=== PATIENT | female | born 1995 | race Caucasian/White ===

== ENCOUNTER 2016-10-19 21:38 | Emergency (ER) | payer OTHER ==
[2016-10-19 22:09] VITALS: BP 124/83; PULSE 90; RESP 18; TEMP 98.7
[2016-10-19] MEDS ORDERED: BUTALB/APAP/CAFF 50-325-40MG TAB PO STA (22:31)
--- NOTE | 2016-10-19 22:34 | ED ---
General Adult HPI - General Chief complaint: Headache Stated complaint: Head pain behind ear Time Seen by Provider: 10/19/16 22:15 Source: patient, family, RN notes reviewed, old records reviewed Mode of arrival: ambulatory Limitations: no limitations - History of Present Illness Initial comments: Chief complaint and history of present illness is a 20-year-old female who is admittedly anxious and has chronic headaches. For the last several days to have discomfort behind the right ear. She does report that for the last year she is also has had some twitching. And occasionally loses her balance. This been ongoing for 4 years. No head injuries. - Related Data Home Medications Medication Instructions Recorded Confirmed No Known Home Medications [No 05/27/16 05/27/16 Known Home Medications] Allergies Allergy/AdvReac Type Severity Reaction Status Date / Time acetaminophen [From Vicodin] Allergy Nausea Verified 05/27/16 23:31 hydrocodone bitartrate Allergy Nausea Verified 05/27/16 23:31 [From Vicodin] Review of Systems ROS Statement: Those systems with pertinent positive or pertinent negative responses have been documented in the HPI. Review of systems. Currently no nausea no vomiting mild headache to the area behind the right ear. She does have a past history of migraines. No stiff neck no shortness of breath no GI/ problems. On gather information patient reports she states occasionally dizzy with vertigo. And occasionally stumbles and falls once or twice per year. Claims he is clumsy. All systems reviewed past medical problems she has history of anemia and anxiety. She's had surgery on the right year 4 overabundance of bone she describes it. No scars noted behind the year. Tympanic membrane otherwise appears to be normal at this time. No other medical problems. Family history noncontributory ALLERGIES to hydrocodone. Patient does smoke encouraged to stop. ROS Other: All systems not noted in ROS Statement are negative. Past Medical History Additional Past Medical History / Comment(s): anemia, anxiety History of Any Multi-Drug Resistant Organisms: None Reported Past Surgical History: Ear Surgery, Orthopedic Surgery Past Psychological History: Anxiety Smoking Status: Current every day smoker Past Alcohol Use History: None Reported Past Drug Use History: None Reported General Exam - General Exam Comments Initial Comments: General: The patient is awake and alert, in no distress, and does not appear acutely ill. Complains discomfort behind her right ear. Radiation. No rashes no injuries. No nausea no vomiting. The patient's temperature is 98.7 pulse 90 respiratory rate 18 pulse ox 90% room air blood pressure 124/83 Eye: Pupils are equal, round and reactive to light, extra-ocular movements are intact ; there is normal conjunctiva bilaterally. No signs of icterus. Ears, nose, mouth and throat: There are moist mucous membranes and no oral lesions. Neck: The neck is supple, there is no tenderness , no anterior cervical lymphadenopathy. Cardiovascular: There is a regular rate and rhythm. No murmur, rub or gallop is appreciated. Respiratory: Lungs are clear to auscultation, respirations are non-labored, breath sounds are equal. No wheezes, stridor, rales, or rhonchi. Gastrointestinal: Soft, non-distended, non-tender abdomen without masses or organomegaly noted. There is no rebound or guarding present. No CVA tenderness. Bowel sounds are unremarkable. Back: There is no tenderness to palpation in the midline. There is no obvious deformity. No rashes noted. Musculoskeletal: Normal ROM, no tenderness, There is no pedal edema. There is no calf tenderness or swelling. Sensation intact. Pulses equal bilaterally 2+. Neurological: CN II-XII intact, There are no obvious motor or sensory deficits. Coordination appears grossly intact. Speech is normal. No focal or lateralizing findings. Skin: Skin is warm and dry and no rashes or lesions are noted. Psychiatric: States she is a past history of anxiety. Limitations: no limitations Course Vital Signs 10/19/16 22:07 Temperature 98.7 F Pulse Rate 90 Respiratory 18 Rate Blood Pressure 124/83 O2 Sat by Pulse 98 Oximetry Medical Decision Making - Medical Decision Making The patient declined Fioricet. She states that her headache had subsided significantly and was not that bad. CAT scan of the brain was done and reviewed his entirety. Findings include no acute intracranial hemorrhage. No evidence of acute infarct. No significant white matter disease. No edema. No mass effect or midline shift. Ventricles unremarkable ventricular megaly. Bones and joints unremarkable no acute fracture. Soft tissues no significant soft tissue abnormality. Sinuses small mucus retention cyst in the left maxillary sinus, incompletely visualized. Remainder of the visualized paranasal sinuses are clear. Mastoid air cells. Mastoid air cells are clear. No mastoid effusion. Impression no evidence of acute intracranial abnormality. No acute findings to account for symptoms. As read by Dr. Durant The patient be discharged home. Advised to use Tylenol or ibuprofen for her headaches. Advised to follow-up with family physician for further evaluation and management as needed. Disposition Clinical Impression: Tension headache Disposition: HOME SELF-CARE Condition: Fair Instructions: Tension Headache (ED) Additional Instructions: Change positions slowly. Use Tylenol or ibuprofen for headaches. Follow-up with family physician for further evaluation of twitching in balance problems. Referrals: Rhonda Ceron DO [Primary Care Provider] - 1-2 days Time of Disposition: 23:18
--- NOTE | 2016-10-19 23:06 | CT ---
EXAM: CT Head Without Intravenous Contrast CLINICAL HISTORY: Pain behind right ear, poor balance. TECHNIQUE: Axial computed tomography images of the head/brain without intravenous contrast. Coronal and sagittal reformations provided. DOSE INFORMATION: CTDI is 60.30 mGy and DLP is 1011.20 mGy-cm. This CT exam was performed using one or more of the following dose reduction techniques: automated exposure control, adjustment of the mA and/or kV according to patient size, and/or use of iterative reconstruction technique. COMPARISON: No relevant prior studies available. FINDINGS: Brain: No acute intracranial hemorrhage. No evidence of acute infarct. No significant white matter disease. No edema. No mass effect or midline shift. Ventricles: Unremarkable. No ventriculomegaly. Bones/joints: Unremarkable. No acute fracture. Soft tissues: No significant soft tissue abnormality. Sinuses: Small mucous retention cyst in the left maxillary sinus, incompletely visualized. Remainder of visualized paranasal sinuses are clear. Mastoid air cells: Mastoid air cells are clear. No mastoid effusion. IMPRESSION: No evidence of acute intracranial abnormality. No acute findings to account for symptoms.
== END 2016-10-19 23:37 | disposition home or self-care (01) ==
LOC: EC 21:38
DX: G44.209 Tension-type headache, unspecified, not intractable (principal); F17.200 Nicotine dependence, unspecified, uncomplicated; Z88.5 Allergy status to narcotic agent
CPT/HCPCS: 70450; 99284

== ENCOUNTER 2017-07-08 15:47 | Emergency (ER) | payer OTHER ==
[2017-07-08 15:59] VITALS: BP 130/76; PULSE 85; RESP 18; TEMP 97.9
--- NOTE | 2017-07-08 17:09 | ED ---
Chest Pain HPI - General Chief Complaint: Chest Pain Stated Complaint: Chest Pain Time Seen by Provider: 07/08/17 16:41 Source: patient Mode of arrival: ambulatory Limitations: no limitations - History of Present Illness Initial Comments: This 20-year-old white female presents with a complaint of some chest pain. She states that it is on her left side and into her left shoulder. It is a sharp type of pain that just lasts a couple of seconds. It is intermittent in nature. It is been present for approximately 2 weeks. She also has had some intermittent palpitations for the past month or more. She did a Holter monitor which she stopped 2 weeks ago. This did not show any abnormalities per patient. He denies any leg pain or swelling or history of DVT or PE. She denies any known previous Cardiologic problems. She denies any cough, fever, or chills. She states that she will feel shortness of breath at times if she exerts herself but states that she does smoke. She complains of significant anxiety. She apparently has a history of anxiety and was prescribed medications. She states that she gets anxious about taking her anxiety medications so does not take anything for her anxiety. She does complain of continued palpitations as well. She does complain of occasional paresthesias into her upper extremities. She denies any other complaints or modifying factors. She is refusing any antianxiety medication currently. - Related Data Home Medications Medication Instructions Recorded Confirmed No Known Home Medications [No 05/27/16 07/08/17 Known Home Medications] Allergies Allergy/AdvReac Type Severity Reaction Status Date / Time codeine Allergy Unknown Verified 07/08/17 16:37 hydrocodone bitartrate Allergy Nausea Verified 07/08/17 16:37 [From Vicodin] peanut Allergy Anaphylaxis Verified 07/08/17 16:37 Review of Systems ROS Statement: Those systems with pertinent positive or pertinent negative responses have been documented in the HPI. ROS Other: All systems not noted in ROS Statement are negative. Past Medical History Additional Past Medical History / Comment(s): anemia, anxiety, PCOS, depression History of Any Multi-Drug Resistant Organisms: None Reported Past Surgical History: Ear Surgery Past Psychological History: Anxiety, Depression Smoking Status: Current every day smoker Past Alcohol Use History: Occasional Past Drug Use History: Marijuana General Exam - General Exam Comments Initial Comments: GENERAL: The patient is well nourished and well hydrated. VITAL SIGNS: Heart rate, blood pressure, respiratory rate reviewed as recorded in nurse's notes. EYES: Pupils are round and reactive. Extraocular movements are intact. No conjunctival / lid redness or swelling. ENT: No external evidence of injury, swelling, or ecchymosis. Airway is patent. Throat is clear. NECK: Nontender. No swelling or evidence of injury. No subcutaneous emphysema. Trachea is midline. No thyroid mass. HEART: Regular rate and rhythm. Good peripheral pulses. LUNGS/CHEST: Breath sounds clear and equal bilaterally. No rales, rhonchi, or wheezes. No ecchymosis, subcutaneous emphysema, or tenderness. ABDOMEN: Abdomen soft without tenderness. No palpable masses or organomegaly. No peritoneal signs. No abdominal wall swelling or ecchymosis. EXTREMITIES: No extremity tenderness. Normal muscle tone and function. No thoracolumbar tenderness. NEUROLOGIC: Sensation is grossly intact. Cranial nerve exam reveals face is symmetrical, tongue is midline, speech is clear. SKIN: No abrasions or ecchymosis is noted. No induration or masses noted. PSYCHIATRIC: Alert and oriented. Appears fairly anxious. Limitations: no limitations Course Vital Signs 07/08/17 15:55 Temperature 97.9 F Pulse Rate 85 Respiratory 18 Rate Blood Pressure 130/76 O2 Sat by Pulse 99 Oximetry Chest Pain [facility] - [facility] The patient was seen and examined. All diagnostics are reviewed. An EKG is completed and shows a normal sinus rhythm with no acute ST-T wave changes identified. The [place] intervals 142, QRS duration is 84, and the QTc interval is 403. The chest x-ray was completed and does not show any acute abnormalities. The patient states that she is not . She refuses any antianxiety medications in the emergency department. It is felt as though her symptoms very likely could be related to anxiety. She is counseled regarding this in detail and leaves in no distress. Disposition Clinical Impression: Chest pain, Palpitations Disposition: HOME SELF-CARE Condition: Good Instructions: Chest Pain (ED), Anxiety (ED) Additional Instructions: Please follow-up with your doctor as we feel as though he may benefit from medication to prevent further anxiety. Referrals: Rhonda Ceron DO [Primary Care Provider] - 1-2 days Time of Disposition: 17:17
--- NOTE | 2017-07-08 17:10 | XR ---
EXAMINATION TYPE: XR chest 2V DATE OF EXAM: 07/08/2017 COMPARISON: 05/24/2015 HISTORY: Chest pain TECHNIQUE: Frontal and lateral views of the chest are obtained. FINDINGS: There is no focal air space opacity. No evidence for pneumothorax. No pleural effusion. The cardiac silhouette size is within normal limits. The osseous structures are grossly intact. IMPRESSION: 1. No acute cardiopulmonary process.
== END 2017-07-08 17:28 | disposition home or self-care (01) ==
LOC: EC 15:47
DX: R07.9 Chest pain, unspecified (principal); R00.2 Palpitations; R06.02 Shortness of breath; R20.2 Paresthesia of skin; F17.200 Nicotine dependence, unspecified, uncomplicated; Z88.5 Allergy status to narcotic agent; Z91.010 Allergy to peanuts
CPT/HCPCS: 71046; 93005; 99284

== ENCOUNTER 2018-04-03 22:39 | Emergency (ER) | payer OTHER ==
--- NOTE | 2018-04-03 23:17 | ED ---
Female Urogenital HPI - General Chief complaint: Urogenital Stated complaint: Blood in Urine Time Seen by Provider: 04/03/18 22:54 Source: patient Mode of arrival: ambulatory Limitations: no limitations - History of Present Illness Initial comments: This patient is 22-year-old woman who presents to be evaluated for frequency, urgency, dysuria and hematuria. Symptoms have been going on 5-6 hours now. She states it is identical to previous urinary tract infection that she has had except this first time she has noted hematuria. Patient denies systemic symptoms, including no fever or chills, palpitations, chest pain, shortness of breath or other symptoms. When asked about abdominal pain she denies pain is just a mild associated suprapubic sensations when urinating. MD Complaint: dysuria Onset/Timin -: hour(s) Location: suprapubic Radiation: non-radiating Severity: mild Quality: cramping Consistency: constant Worsens with: urination Patient : No - Related Data Previous Rx's Medication Instructions Recorded Cephalexin [Keflex] 500 mg PO Q6HR 3 Days #12 cap 04/04/18 Phenazopyridine [Pyridium] 100 mg PO TID #6 tablet 04/04/18 Allergies Allergy/AdvReac Type Severity Reaction Status Date / Time codeine Allergy Unknown Verified 04/03/18 22:47 hydrocodone bitartrate Allergy Nausea Verified 04/03/18 22:47 [From Vicodin] peanut Allergy Anaphylaxis Verified 04/03/18 22:47 Review of Systems ROS Statement: Those systems with pertinent positive or pertinent negative responses have been documented in the HPI. ROS Other: All systems not noted in ROS Statement are negative. Constitutional: Denies: fever, chills Respiratory: Denies: cough, dyspnea Cardiovascular: Denies: chest pain, palpitations Gastrointestinal: Denies: abdominal pain, nausea, vomiting, diarrhea, constipation Genitourinary: Reports: dysuria, frequency, hematuria. Denies: discharge Musculoskeletal: Denies: back pain Skin: Denies: rash Neurological: Denies: headache, weakness, numbness Past Medical History Additional Past Medical History / Comment(s): anemia, anxiety, PCOS, depression History of Any Multi-Drug Resistant Organisms: None Reported Past Surgical History: Ear Surgery Past Psychological History: Anxiety, Depression Smoking Status: Former smoker Past Alcohol Use History: Occasional Past Drug Use History: Marijuana General Exam Limitations: no limitations General appearance: alert, in no apparent distress Respiratory exam: Present: normal lung sounds bilaterally. Absent: respiratory distress, wheezes, rales, rhonchi, stridor Cardiovascular Exam: Present: regular rate, normal rhythm, normal heart sounds. Absent: systolic murmur, diastolic murmur, rubs, gallop GI/Abdominal exam: Present: soft. Absent: distended, tenderness, guarding, rebound, rigid, mass Back exam: Present: normal inspection. Absent: CVA tenderness (R), CVA tenderness (L) Neurological exam: Present: alert Skin exam: Present: warm, dry, intact, normal color. Absent: rash Course Vital Signs 04/03/18 22:43 Temperature 97.9 F Pulse Rate 109 H Respiratory 17 Rate Blood Pressure 121/82 O2 Sat by Pulse 99 Oximetry Medical Decision Making - Lab Data Lab Results 04/03/18 04/03/18 Range/Units 23:30 23:30 Urine Color Yellow Urine Appearance Turbid H (Clear) Urine pH 5.5 (5.0-8.0) Ur Specific [place] 1.015 (1.001-1.035) Urine Protein 1+ H (Negative) Urine Glucose (UA) Negative (Negative) Urine Ketones Negative (Negative) Urine Blood Large H (Negative) Urine Nitrite Positive H (Negative) Urine Bilirubin Negative (Negative) Urine Urobilinogen <2.0 (<2.0) mg/dL Ur Leukocyte Esterase Large H (Negative) Urine RBC >182 H (0-5) /hpf Urine WBC >182 H (0-5) /hpf Urine WBC Clumps Few H (None) /hpf Ur Squamous Epith Cells 6 H (0-4) /hpf Urine Bacteria Many H (None) /hpf Urine Mucus Rare H (None) /hpf Urine HCG, Qual Not Detected (Not Detectd) Disposition Clinical Impression: Urinary tract infection Disposition: HOME SELF-CARE Condition: Good Instructions: Urinary Tract Infection in Women (ED) Prescriptions: Cephalexin [Keflex] 500 mg PO Q6HR 3 Days #12 cap Phenazopyridine [Pyridium] 100 mg PO TID #6 tablet Is patient prescribed a controlled substance at d/c from ED?: No Referrals: Nayana Deluna MD [Primary Care Provider] - 1-2 days
[2018-04-04 00:12] LABS: Appearance,Urine Turbid (Clear); Bacteria,Urine Many /hpf; Bilirubin,Urine Negative (Negative); Blood,Urine Large (Negative); Color,Urine Yellow; Glucose,Urine (UA) Negative (Negative); Ketones,Urine Negative (Negative); Leukocyte Esterase,Urine Large (Negative); Mucus,Urine Rare /hpf; Nitrite,Urine Positive (Negative); PH, Urine 5.5 (5.0-8.0); Protein,Urine 1+ (Negative); RBC,Urine >182 /hpf (0-5); Specific Gravity,Urine 1.015 (1.001-1.035); Squamous Epithelial Cell,Urine 6 /hpf (0-4); Urobilinogen,Urine <2.0 mg/dL (<2.0); WBC,Urine >182 /hpf (0-5)
[2018-04-04] MEDS ORDERED: CIPROFLOXACIN HCL 500 MG TAB PO STA (00:24)
[2018-04-04] MEDS ORDERED: PHENAZOPYRIDINE 100 MG TAB PO STA (00:24)
[2018-04-04 00:38] VITALS: BP 116/86; PULSE 81; RESP 18; TEMP 97.5
== END 2018-04-04 00:37 | disposition home or self-care (01) ==
LOC: EC 22:39
DX: N39.0 Urinary tract infection, site not specified (principal); Z87.891 Personal history of nicotine dependence; Z88.5 Allergy status to narcotic agent; Z91.010 Allergy to peanuts
CPT/HCPCS: 81001; 81025; 99283

== ENCOUNTER 2020-01-30 08:42 | Emergency (ER) | payer OTHER ==
--- NOTE | 2020-01-30 10:37 | XR ---
Soft tissue neck HISTORY: Difficulty swallowing 2 views of the neck There is reversal of the cervical lordosis. No radiopaque foreign body. Airway is patent. Epiglottis shows a normal appearance in profile. IMPRESSION: No soft tissue abnormality evident
[2020-01-30 10:41] LABS: Basophils # (A) 0.1 k/uL (0-0.2); Basophils % (A) 1 %; Eosinophils # (A) 0.3 k/uL (0-0.7); Eosinophils % (A) 4 %; HCT 44.3 % (34.0-46.0); HGB 14.6 gm/dL (11.4-16.0); Lymphocytes # (A) 2.7 k/uL (1.0-4.8); Lymphocytes % (A) 33 %; MCH 30.8 pg (25.0-35.0); MCHC 32.9 g/dL (31.0-37.0); MCV 93.6 fL (80.0-100.0); Mean Platelet Volume 7.3; Monocytes # (A) 0.5 k/uL (0-1.0); Monocytes % (A) 6 %; Neutrophils # (A) 4.4 k/uL (1.3-7.7); Neutrophils % (A) 55 %; Platelet Count 304 k/uL (150-450); RBC 4.73 m/uL (3.80-5.40); RDW 12.6 % (11.5-15.5); WBC 8.1 k/uL (3.8-10.6)
--- NOTE | 2020-01-30 10:44 | ED ---
General Adult HPI - General Chief complaint: ENT Stated complaint: throat problems Time Seen by Provider: 01/30/20 09:43 Source: patient, family, RN notes reviewed Mode of arrival: ambulatory Limitations: no limitations - History of Present Illness Initial comments: This is a 24-year-old female presents emergency Department chief complaint of throat fullness. Patient states her last one week she's felt that there is an increased fullness in her throat region. She did a video appointment with her PCP who is concerned about her thyroid recommended to have lab work and imaging. Patient states she cannot wait any longer so she presents to the emergency department. Patient has also had a past medical history. She has no difficulty getting fluids or solids down no shortness of breath denies any abdominal pain. Patient occasionally has some coughing and reflux. - Related Data Previous Rx's Medication Instructions Recorded Cephalexin [Keflex] 500 mg PO Q6HR 3 Days #12 cap 04/04/18 Phenazopyridine [Pyridium] 100 mg PO TID #6 tablet 04/04/18 Famotidine [Pepcid] 20 mg PO BID #28 tablet 01/30/20 Allergies Allergy/AdvReac Type Severity Reaction Status Date / Time codeine Allergy Unknown Verified 01/30/20 08:47 hydrocodone bitartrate Allergy Nausea Verified 01/30/20 08:47 [From Vicodin] peanut Allergy Anaphylaxis Verified 01/30/20 08:47 Review of Systems ROS Statement: Those systems with pertinent positive or pertinent negative responses have been documented in the HPI. ROS Other: All systems not noted in ROS Statement are negative. Past Medical History Additional Past Medical History / Comment(s): anemia, anxiety, PCOS, depression History of Any Multi-Drug Resistant Organisms: None Reported Past Surgical History: Ear Surgery Past Psychological History: Anxiety, Depression Smoking Status: Former smoker Past Alcohol Use History: Occasional Past Drug Use History: Marijuana General Exam Limitations: no limitations General appearance: alert, in no apparent distress Head exam: Present: atraumatic, normocephalic, normal inspection Eye exam: Present: normal appearance, PERRL, EOMI. Absent: scleral icterus, conjunctival injection, periorbital swelling ENT exam: Present: normal exam, normal oropharynx, mucous membranes moist, TM's normal bilaterally Neck exam: Present: normal inspection, full ROM. Absent: tenderness, meningismus, lymphadenopathy, thyromegaly Respiratory exam: Present: normal lung sounds bilaterally. Absent: respiratory distress, wheezes, rales, rhonchi, stridor Cardiovascular Exam: Present: regular rate, normal rhythm, normal heart sounds. Absent: systolic murmur, diastolic murmur, rubs, gallop, clicks GI/Abdominal exam: Present: soft, normal bowel sounds. Absent: distended, tenderness, guarding, rebound, rigid Course Vital Signs 01/30/20 08:42 Temperature 97.9 F Pulse Rate 67 Respiratory 18 Rate Blood Pressure 140/76 O2 Sat by Pulse 100 Oximetry Medical Decision Making - Medical Decision Making 24-year-old female presented for difficulty swallowing. Ultrasound, x-ray, labs unremarkable. Patient's symptoms related to reflux. Patient will be started on Pepcid with close follow-up with ENT. - Lab Data Result diagrams: 01/30/20 10:09 01/30/20 10:09 Lab Results 01/30/20 01/30/20 Range/Units 10:09 10:09 WBC 8.1 (3.8-10.6) k/uL RBC 4.73 (3.80-5.40) m/uL Hgb 14.6 (11.4-16.0) gm/dL Hct 44.3 (34.0-46.0) % MCV 93.6 (80.0-100.0) fL MCH 30.8 (25.0-35.0) pg MCHC 32.9 (31.0-37.0) g/dL RDW 12.6 (11.5-15.5) % Plt Count 304 (150-450) k/uL Neutrophils % 55 % Lymphocytes % 33 % Monocytes % 6 % Eosinophils % 4 % Basophils % 1 % Neutrophils # 4.4 (1.3-7.7) k/uL Lymphocytes # 2.7 (1.0-4.8) k/uL Monocytes # 0.5 (0-1.0) k/uL Eosinophils # 0.3 (0-0.7) k/uL Basophils # 0.1 (0-0.2) k/uL Sodium 140 (137-145) mmol/L Potassium 4.6 (3.5-5.1) mmol/L Chloride 108 H (98-107) mmol/L Carbon Dioxide 23 (22-30) mmol/L Anion Gap 9 mmol/L BUN 14 (7-17) mg/dL Creatinine 0.71 (0.52-1.04) mg/dL Est GFR (CKD-EPI)AfAm >90 (>60 ml/min/1.73 sqM) Est GFR (CKD-EPI)NonAf >90 (>60 ml/min/1.73 sqM) Glucose 102 H (74-99) mg/dL Calcium 10.1 (8.4-10.2) mg/dL Total Bilirubin 0.5 (0.2-1.3) mg/dL AST 25 (14-36) U/L ALT 23 (4-34) U/L Alkaline Phosphatase 93 (38-126) U/L Total Protein 8.0 (6.3-8.2) g/dL Albumin 4.8 (3.5-5.0) g/dL TSH 1.520 (0.465-4.680) mIU/L Disposition Clinical Impression: GERD with esophagitis, Throat fullness Disposition: HOME SELF-CARE Condition: Stable Instructions (If sedation given, give patient instructions): Esophageal Spasm (ED), Gastroesophageal Reflux Disease (ED) Additional Instructions: Please return to the Emergency Department if symptoms worsen or any other concerns. Prescriptions: Famotidine [Pepcid] 20 mg PO BID #28 tablet Is patient prescribed a controlled substance at d/c from ED?: No Referrals: Nayana Deluna MD [Primary Care Provider] - 1-2 days Shane Brennan MD [STAFF PHYSICIAN] - 1-2 days Time of Disposition: 11:49
[2020-01-30 10:52] LABS: ALT 23 U/L (4-34); AST 25 U/L (14-36); African American GFR (CKD) >90 (>60 ml/min/1.73 sqM); Albumin 4.8 g/dL (3.5-5.0); Alkaline Phosphatase 93 U/L (38-126); Anion Gap 9 mmol/L; Blood Urea Nitrogen 14 mg/dL (7-17); Calcium 10.1 mg/dL (8.4-10.2); Carbon Dioxide 23 mmol/L (22-30); Chloride 108 mmol/L (98-107); Glucose 102 mg/dL (74-99); Non-African American GFR(CKD) >90 (>60 ml/min/1.73 sqM); Potassium 4.6 mmol/L (3.5-5.1); Sodium 140 mmol/L (137-145); Total Bilirubin 0.5 mg/dL (0.2-1.3)
--- NOTE | 2020-01-30 11:45 | US ---
EXAMINATION TYPE: US thyroid st tissue head/neck DATE OF EXAM: 01/30/2020 COMPARISON: NONE CLINICAL HISTORY: Difficult a swallowing. Patient c/o "Lump in throat" x 1 week. GLAND SIZE: Right Lobe: 5.0 x 1.8 x 1.6 cm Overall Parenchyma: homogenous Left Lobe: 5.5 x 1.9 x 1.8 cm Overall Parenchyma: homogeneous Isthmus Thickness: 0.5 cm NODULES RIGHT: # of nodules measured on right: 0 LEFT: # of nodules measured on left: 0 ISTHMUS: # of nodules measured in the isthmus: 0 Bilateral neck scanned, no evidence of lymphadenopathy. IMPRESSION: 1. Normal thyroid gland with no discrete nodule. 2. No evidence of lymphadenopathy of the visualized neck.
[2020-01-30 12:02] VITALS: BP 123/75; PULSE 61; RESP 17; TEMP 98.2
== END 2020-01-30 12:11 | disposition home or self-care (01) ==
LOC: EC 08:42
DX: K21.0 Gastro-esophageal reflux disease with esophagitis (principal); Z87.891 Personal history of nicotine dependence; Z88.5 Allergy status to narcotic agent; Z91.010 Allergy to peanuts
CPT/HCPCS: 36415; 70360; 76536; 80053; 84443; 85025; 99284

== ENCOUNTER 2024-10-28 16:36 | Outpatient (CLI) | payer OTHER ==
[2024-10-28 17:23] LABS: Appearance,Urine Cloudy (Clear); Bacteria,Urine Rare /hpf; Bilirubin,Urine Negative (Negative); Blood,Urine Negative (Negative); Color,Urine Colorless; Glucose,Urine (UA) Negative (Negative); Ketones,Urine Negative (Negative); Leukocyte Esterase,Urine Large (Negative); Nitrite,Urine Negative (Negative); PH, Urine 6.5 (5.0-8.0); Protein,Urine Negative (Negative); RBC,Urine 11 /hpf (0-5); Specific Gravity,Urine 1.004 (1.001-1.035); Squamous Epithelial Cell,Urine 2 /hpf (0-4); Urobilinogen,Urine <2.0 mg/dL (<2.0); WBC,Urine 8 /hpf (0-5)
[2024-10-28 17:50] VITALS: BP 131/85; PULSE 83; RESP 18; TEMP 98.6
--- NOTE | 2024-11-19 15:02 | P.MSEPDOC ---
Presenting Problems - Arrival Data Date of Arrival on Unit: 10/28/24 Time of Arrival on Unit: 16:36 Mode of Transport: Ambulatory - Complaint OB-Reason for Admission/Chief Complaint: Decreased Movement, Pain Comment: Pt presents to triage with c/o decreased movement and RLQ pain starting around 1100 today. Medical History - Information : 1 Para: 0 Term: 0 : 0 Abortions: Spontaneous or Elective: 0 Number of Living Children: 0 - Gestational Age Gestational Age by MARJORIE (wks/days): 27 Weeks and 1 Days - History Comment: pt cigarette smoker Review of Systems - Review of Systems Constitutional: No problems Breast: No problems ENT: No problems Cardiovascular: No problems Respiratory: No problems Gastrointestinal: No problems Genitourinary: No problems Musculoskeletal: No problems Neurological: No problems Skin: No problems Comment: RLQ pain Vital Signs - Temperature Temperature: 98.6 F Temperature Source: Temporal Artery Scan - Pulse Right Pulse Rate: 83 Pulse Assessment Method: Pulse Oximetry - Respirations Respiratory Rate: 18 Oxygen Delivery Method: Room Air O2 Sat by Pulse Oximetry: 98 - Blood Pressure Right Arm Blood Pressure: 131/85 Blood Pressure Mean: 100 Medical Screen Scoring - Assessment - Baby A Baseline FHR: 145 Heart Rate - NICHD Category: Category I (Normal) Physician Notification - Physician Notified Physician Notified Date: 10/28/24 Physician Notified Time: 17:03 Physician: Shirin Silva New Order Received: Yes (UA) - Notification Comment Comment: Notified Dr Silva of patient's c/o decreased movement and RLQ pain since this morning around 1100. Notified of VS, FHR cat 1, no contractions graphed or felt by patient. movement noted audibly and felt by patient since patient has been in triage. Dr Silva ordered UA, if UA WNL patient can be d/c. UA came back reflecting UTI, Dr Silva notified and stated she will send antibiotic order to patient's preferred pharmacy to treat for UTI. Maternal Triage Index - Maternal Triage Index Presenting for scheduled procedure w/no complaint: No - Stat/Priority 1 Stat Priority 1: No - Urgent/Priority 2 Urgent Priority 2: Yes Provider Notified: Shirin Silva Provider Notified Time: 17:03 Criteria Met for Priority 2: decreased movement Disposition - Disposition OB Disposition: Discharge to home Discharge Date: 10/28/24 Discharge Time: 17:46 I agree with the RN Medical Screening Exam: Yes Physician's MSE Comment: I have neither seen nor examined the patient Case reviewed; plan agreed upon as documented in EMR&OBIX.: Yes Diagnosis: RELATED CONDITIONS, UNSPECIFIED, THIRD TRIMESTER
== END 2024-10-28 17:51 | disposition home or self-care (01) ==
LOC: MERGE 16:36 → FBPOP 16:36
PROVIDERS: ATTEND Obstetrics & Gynecology
DX: O26.893 Other specified pregnancy related conditions, third trimester (principal); Z91.010 Allergy to peanuts; Z88.5 Allergy status to narcotic agent; Z3A.27 27 weeks gestation of pregnancy
CPT/HCPCS: 81001; 87086; G0463; 99213

== ENCOUNTER 2024-11-01 10:18 | Outpatient (CLI) | payer OTHER ==
[2024-11-01 10:40] LABS: Basophils # (A) 0.04 10*3/uL (0.00-0.10); Basophils % (A) 0.4 %; Eosinophils # (A) 0.05 10*3/uL (0.04-0.35); Eosinophils % (A) 0.5 %; HCT 35.1 % (37.2-46.3); HGB 12.1 g/dL (12.0-15.0); Lymphocytes # (A) 1.97 10*3/uL (0.90-5.00); Lymphocytes % (A) 19.6 %; MCH 32.1 pg (27.0-32.0); MCHC 34.5 g/dL (32.0-37.0); MCV 93.1 fL (80.0-97.0); Mean Platelet Volume 9.5 fL (9.5-12.2); Monocytes # (A) 0.66 10*3/uL (0.20-1.00); Monocytes % (A) 6.6 %; Neutrophils # (A) 7.29 10*3/uL (1.80-7.70); Neutrophils % (A) 72.6 %; Platelet Count 276 10*3/uL (140-440); RBC 3.77 10*6/uL (4.10-5.20); RDW 12.9 % (11.5-14.5); WBC 10.04 10*3/uL (4.50-10.00)
[2024-11-01 10:49] LABS: ALT 17 U/L (4-34); AST 20 U/L (14-36); African American GFR (CKD) >90 (>60 ml/min/1.73 sqM); Blood Urea Nitrogen 7 mg/dL (7-17); Non-African American GFR(CKD) >90 (>60 ml/min/1.73 sqM); Uric Acid 4.4 mg/dL (3.7-7.4)
[2024-11-01 11:32] LABS: Creatinine,Urine Random 57.6 mg/dL; Protein/Creatinine Ratio,Urine 0.243
[2024-11-01 11:55] LABS: Appearance,Urine Clear (Clear); Bilirubin,Urine Negative (Negative); Blood,Urine Negative (Negative); Color,Urine Colorless; Glucose,Urine (UA) Negative (Negative); Ketones,Urine Negative (Negative); Leukocyte Esterase,Urine Large (Negative); Nitrite,Urine Negative (Negative); Protein,Urine Negative (Negative); Specific Gravity,Urine 1.008 (1.001-1.035); Urobilinogen,Urine <2.0 mg/dL (<2.0); WBC,Urine 2 /hpf (0-5)
[2024-11-01 11:56] LABS: Mucus,Urine Rare /hpf; RBC,Urine 3 /hpf (0-5); Squamous Epithelial Cell,Urine 3 /hpf (0-4)
[2024-11-01 13:17] VITALS: BP 127/81; PULSE 98; RESP 17; TEMP 97.8
== END 2024-11-01 11:48 | disposition home or self-care (01) ==
LOC: FBPOP 10:18 → MERGE 10:18 → FBPOP 11:48
PROVIDERS: ATTEND Obstetrics & Gynecology
CPT/HCPCS: 36415; 81001; 82565; 82570; 84156; 84450; 84460; 84520; 84550; 85025; 99215

== ENCOUNTER 2024-11-16 13:17 | Outpatient (CLI) | payer OTHER ==
[2024-11-16 14:26] LABS: Appearance,Urine Clear (Clear); Bilirubin,Urine Negative (Negative); Blood,Urine Negative (Negative); Color,Urine Colorless; Glucose,Urine (UA) Negative (Negative); Ketones,Urine Negative (Negative); Leukocyte Esterase,Urine Negative (Negative); Nitrite,Urine Negative (Negative); PH, Urine 6.5 (5.0-8.0); Protein,Urine Negative (Negative); Specific Gravity,Urine 1.003 (1.001-1.035); Urobilinogen,Urine <2.0 mg/dL (<2.0)
[2024-11-16 14:35] LABS: Basophils # (A) 0.04 10*3/uL (0.00-0.10); Basophils % (A) 0.4 %; Eosinophils # (A) 0.06 10*3/uL (0.04-0.35); Eosinophils % (A) 0.6 %; HCT 35.3 % (37.2-46.3); HGB 12.2 g/dL (12.0-15.0); Lymphocytes # (A) 2.31 10*3/uL (0.90-5.00); Lymphocytes % (A) 24.2 %; MCH 32.5 pg (27.0-32.0); MCHC 34.6 g/dL (32.0-37.0); MCV 94.1 fL (80.0-97.0); Mean Platelet Volume 9.5 fL (9.5-12.2); Monocytes # (A) 0.64 10*3/uL (0.20-1.00); Monocytes % (A) 6.7 %; Neutrophils # (A) 6.47 10*3/uL (1.80-7.70); Neutrophils % (A) 67.8 %; Platelet Count 282 10*3/uL (140-440); RBC 3.75 10*6/uL (4.10-5.20); WBC 9.55 10*3/uL (4.50-10.00)
[2024-11-16 14:40] LABS: Creatinine,Urine Random 15.1 mg/dL; Protein/Creatinine Ratio,Urine 0.861
[2024-11-16 14:47] LABS: ALT 19 U/L (4-34); AST 22 U/L (14-36); African American GFR (CKD) >90 (>60 ml/min/1.73 sqM); Blood Urea Nitrogen 9 mg/dL (7-17); LDH 160 U/L (120-246); Non-African American GFR(CKD) >90 (>60 ml/min/1.73 sqM); Uric Acid 4.5 mg/dL (3.7-7.4)
[2024-11-16 15:14] VITALS: BP 146/88; PULSE 82; RESP 16; TEMP 98.2
--- NOTE | 2024-11-19 15:18 | P.MSEPDOC ---
Presenting Problems - Arrival Data Date of Arrival on Unit: 11/16/24 Time of Arrival on Unit: 13:17 Mode of Transport: Ambulatory - Complaint OB-Reason for Admission/Chief Complaint: Elevated Blood Pressure Medical History - Information : 1 Para: 0 Term: 0 : 0 Abortions: Spontaneous or Elective: 0 Number of Living Children: 0 - Gestational Age Gestational Age by MARJORIE (wks/days): 29 Weeks and 6 Days - History Complications: Smoker Review of Systems - Review of Systems Constitutional: No problems Breast: No problems ENT: No problems Cardiovascular: No problems Respiratory: No problems Gastrointestinal: No problems Genitourinary: No problems Musculoskeletal: No problems Neurological: No problems Skin: No problems Vital Signs - Temperature Temperature: 98.2 F Temperature Source: Temporal Artery Scan - Pulse Right Sitting Pulse Rate: 82 Pulse Assessment Method: Automatic Cuff - Respirations Respiratory Rate: 16 Oxygen Delivery Method: Room Air O2 Sat by Pulse Oximetry: 97 - Blood Pressure Right Arm Blood Pressure: 146/88 Blood Pressure Mean: 107 Blood Pressure Source: Automatic Cuff - Comment Vital Signs Comment: repeat serial bps 120-130s/80-90s Medical Screen Scoring - Assessment - Baby A Baseline FHR: 145 Heart Rate - NICHD Category: Category I (Normal) NST: Reactive Physician Notification - Physician Notified Physician Notified Date: 11/16/24 Physician Notified Time: 14:56 Physician: Shirin Silva New Order Received: Yes (d/c home) Maternal Triage Index - Urgent/Priority 2 Urgent Priority 2: Yes Provider Notified: Shirin Silva Provider Notified Time: 14:11 Criteria Met for Priority 2: bp 146/88, with repeats all 120-130s/80-90s, reactive nst, p/c ratio 0.861, all other labs wnl Disposition - Disposition OB Disposition: Discharge to home, Written follow up instructions reviewed Discharge Date: 11/16/24 Discharge Time: 15:00 I agree with the RN Medical Screening Exam: Yes Physician's MSE Comment: I have neither seen nor examined the patient Case reviewed; plan agreed upon as documented in EMR&OBIX.: Yes Diagnosis: RELATED CONDITIONS, UNSPECIFIED, THIRD TRIMESTER
== END 2024-11-16 15:00 | disposition home or self-care (01) ==
LOC: FBPOP 13:17
PROVIDERS: ATTEND Obstetrics & Gynecology
DX: O26.893 Other specified pregnancy related conditions, third trimester (principal); O99.333 Smoking (tobacco) complicating pregnancy, third trimester; F17.200 Nicotine dependence, unspecified, uncomplicated; Z91.010 Allergy to peanuts; Z88.5 Allergy status to narcotic agent; Z3A.29 29 weeks gestation of pregnancy
CPT/HCPCS: 59025; 82570; 84156; 82565; 83615; 84450; 84460; 84520; 84550; 85025; 81003; G0463; 99215

== ENCOUNTER 2024-11-17 14:31 | Outpatient (CLI) | payer OTHER ==
[2024-11-17 16:39] VITALS: BP 124/84; PULSE 85; RESP 16; TEMP 98.6
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
== END 2024-11-17 16:30 | disposition home or self-care (01) ==
LOC: FBPOP 14:31
PROVIDERS: ATTEND Obstetrics & Gynecology
DX: O26.893 Other specified pregnancy related conditions, third trimester (principal); Z91.010 Allergy to peanuts; Z88.5 Allergy status to narcotic agent; Z88.8 Allergy status to other drugs, medicaments and biological substances; Z3A.30 30 weeks gestation of pregnancy
CPT/HCPCS: 59025; G0463; 99213

== ENCOUNTER 2024-12-16 10:42 | Outpatient (CLI) | payer OTHER ==
--- NOTE | 2024-12-16 11:22 | US ---
EXAMINATION TYPE: US OB BPP wo non-stress DATE OF EXAM: 12/16/2024 COMPARISON: NONE CLINICAL INDICATION: Female, 28 years old with history of Abnormal BPP on 12/15 in office; Abnormal BP P in office TECHNIQUE: Transabdominal (TA). Scoring by the line rider during real-time assessment. FINDINGS: BPP PARAMETERS: PRESENTATION: Vertex HEART RATE: 149 bpm RHYTHM: Normal CESAR: 12.2 DIAPHRAGM IMAGED: Yes BPP SCORIN. Breathin (1 episode of breathing of 30 second duration in 30 minutes of scanning time) 2. Movement: 2 (at least 3 discrete body movements in 30 minutes) 3. Tone: 2 (1 episode of active flexion/extension of limb) 4. CESAR: 2 (CESAR index > 5cm) BEAUTY ADVISOR NOTES: IMPRESSION: TOTAL SCORE: 8 / 8 [facility], , 12/16/2024 11:19 AM
[2024-12-16 11:36] VITALS: BP 124/87; PULSE 88; RESP 16; TEMP 98.8
== END 2024-12-16 11:32 | disposition home or self-care (01) ==
LOC: FBPOP 10:42
PROVIDERS: ATTEND Obstetrics & Gynecology
CPT/HCPCS: 76819

== ENCOUNTER 2024-12-26 08:54 | Inpatient (IN) | payer OTHER ==
[2024-12-26] MEDS: LACTATED RINGERS 1,000 ML IV SCH (09:20)
[2024-12-26] MEDS ORDERED: LABETALOL 5 MG/ML VIAL MDV IVP PRN (09:24)
[2024-12-26] MEDS ORDERED: hydrALAZINE HCL 20 MG/ML 1 ML VIAL IVP PRN (09:24)
[2024-12-26] MEDS: ACETAMINOPHEN IV (For NPO) 1,000 MG in EMPTY BAG 1 BAG IVPB ONE (09:41)
[2024-12-26 09:45] LABS: Basophils # (A) 0.05 10*3/uL (0.00-0.10); Basophils % (A) 0.5 %; Eosinophils # (A) 0.07 10*3/uL (0.04-0.35); Eosinophils % (A) 0.7 %; HCT 37.0 % (37.2-46.3); HGB 13.1 g/dL (12.0-15.0); Lymphocytes # (A) 2.57 10*3/uL (0.90-5.00); Lymphocytes % (A) 26.5 %; MCH 33.0 pg (27.0-32.0); MCHC 35.4 g/dL (32.0-37.0); MCV 93.2 fL (80.0-97.0); Monocytes # (A) 0.77 10*3/uL (0.20-1.00); Monocytes % (A) 7.9 %; Neutrophils # (A) 6.20 10*3/uL (1.80-7.70); Neutrophils % (A) 64.1 %; Platelet Count 263 10*3/uL (140-440); RBC 3.97 10*6/uL (4.10-5.20); RDW 13.0 % (11.5-14.5); WBC 9.69 10*3/uL (4.50-10.00)
[2024-12-26 09:49] LABS: Bacteria,Urine Rare /hpf; Bilirubin,Urine Negative (Negative); Blood,Urine Trace (Negative); Color,Urine Yellow; Glucose,Urine (UA) Negative (Negative); Ketones,Urine Negative (Negative); Leukocyte Esterase,Urine Large (Negative); Mucus,Urine Many /hpf; Nitrite,Urine Negative (Negative); PH, Urine 5.5 (5.0-8.0); Protein,Urine Trace (Negative); RBC,Urine 14 /hpf (0-5); Specific Gravity,Urine 1.030 (1.001-1.035); Squamous Epithelial Cell,Urine 10 /hpf (0-4); Urobilinogen,Urine 2.0 mg/dL (<2.0); WBC,Urine 10 /hpf (0-5)
[2024-12-26] MEDS: LABETALOL 5 MG/ML VIAL MDV IVP PRN ×2 (09:49→11:03)
[2024-12-26 10:00] LABS: ALT 14 U/L (4-34); AST 23 U/L (14-36); African American GFR (CKD) >90 (>60 ml/min/1.73 sqM); Blood Urea Nitrogen 12 mg/dL (7-17); LDH 180 U/L (120-246); Non-African American GFR(CKD) >90 (>60 ml/min/1.73 sqM); Protein/Creatinine Ratio,Urine 0.066; Uric Acid 5.9 mg/dL (3.7-7.4)
[2024-12-26] MEDS: MAGNESIUM SULFATE GM 6 GM in SODIUM CHLORIDE 0.9% 100 ML IVPB ONE (10:48)
[2024-12-26] MEDS: MAGNESIUM SULFATE-WATER PMX 20 GM in WATER FOR INJECTION 1 500ML.BAG IV SCH (11:12)
[2024-12-26] MEDS ORDERED: NALBUPHINE 10 MG/ML (10 ML MDV) IV PRN (12:13)
--- NOTE | 2024-12-26 12:13 | P.HPOB ---
History of Present Illness H&P Date: 12/26/24 Chief Complaint: Medical induction of labor Ms. Paige is a 29 year old at 35 weeks and 4 days with EDC of 01/26/2035 by LMP consistent with 10 week US who presented to triage with intractable headache and elevated home blood pressures. In triage, the patient had severe range BPs and the patient had already been diagnosed with proteinuria of 0.8 P:C. This gives a diagnosis of pre-eclampsia with severe features. The is also complicated by severe IUGR <1%ile with elevated umbilical artery dopplers for which the patient had undergone rigorous surveillance and consultation with [facility]. Of note, the patient is a smoker. work-up: blood type O positive, antibody screen negative, rubella immun, VDRL non-reactive, HBsAg negative, HIV negative, HCV non-reactive, gonorrhea negative, chlamydia negative, 1 hour GTT wnl. GBS unknown. Past Medical History Additional Past Medical History / Comment(s): anemia, anxiety, PCOS, depression History of Any Multi-Drug Resistant Organisms: None Reported Past Surgical History: Ear Surgery Smoking Status: Current every day smoker Medications and Allergies Home Medications Medication Instructions Recorded Confirmed Type Aspirin 81 mg PO DAILY 10/28/24 11/17/24 History Vit No.179/Iron/Folic 1 tablet PO DAILY 10/28/24 11/17/24 History [ Tablet] Allergies Allergy/AdvReac Type Severity Reaction Status Date / Time codeine Allergy Unknown Verified 12/26/24 09:21 hydrocodone bitartrate Allergy Nausea Verified 12/26/24 09:21 [From Vicodin] Exam Intake and Output 12/25/24 12/26/24 12/26/24 22:59 06:59 14:59 Other: Weight 81.647 kg Focused physical exam is performed. This is a healthy-appearing in no apparent distress. Breathing is non-labored. Abdomen is gravid and non-tender. Cervical exam is closed/long/high. Sterile speculum is used to place cooks catheter. 60cc are used to fill each balloon with sterile water. Extremities non-tender and non-edematous. heart tones are reactive and reassuring on NST. Results Result Diagrams: 12/26/24 09:28 12/26/24 09:28 Abnormal Lab Results - Last 24 Hours (Table) 12/26/24 12/26/24 Range/Units 09:28 09:28 RBC 3.97 L (4.10-5.20) 10*6/uL Hct 37.0 L (37.2-46.3) % MCH 33.0 H (27.0-32.0) pg Urine Appearance Cloudy H (Clear) Urine Protein Trace H (Negative) Urine Blood Trace H (Negative) Ur Leukocyte Esterase Large H (Negative) Urine RBC 14 H (0-5) /hpf Urine WBC 10 H (0-5) /hpf Ur Squamous Epith Cells 10 H (0-4) /hpf Urine Bacteria Rare H (None) /hpf Urine Mucus Many H (None) /hpf Assessment and Plan Assessment: 29 year old at 35 weeks and 4 days gestation presenting for medical induction of labor for pre-eclampsia with severe features and severe IUGR <1%ile with elevated UA dopplers Plan: Admit, clear liquid diet, Mag Sulfate (6g bolus > 2 g mainetenance) for seizure prophylaxis, s/p IV Labetalol 20mg continue down pathway as needed for severe range BPs, low-dose pitocin with cooks catheter x12 hours (remove at midnight), nubain prn pain. Continuous EFM and tocometer.
[2024-12-26] MEDS: OXYTOCIN 30 UNITS/500 ML NS 30 UNIT in SALINE 1 500ML.BAG IV SCH (12:30)
[2024-12-26] MEDS: ACETAMINOPHEN IV (For NPO) 1,000 MG in EMPTY BAG 1 BAG IVPB PRN (15:56)
[2024-12-26] MEDS ORDERED: ACETAMINOPHEN IV (For NPO) 1,000 MG in EMPTY BAG 1 BAG IVPB SCH (18:00)
[2024-12-26 22:47] LABS: Fibrinogen 468.0 mg/dL (200-500); INR 0.8 (<1.2); Partial Thromboplastin Time 24.1 sec (22.0-30.0); Prothrombin Time 9.4 sec (10.0-12.5)
[2024-12-27] MEDS: PENICILLIN G POTASSIUM 5,000,000 UNIT in SODIUM CHLORIDE 0.9% 100 ML IVPB ONE (00:09)
[2024-12-27] MEDS ORDERED: TRANEXAMIC 1,000 MG/100ML-NACL 1,000 MG in EMPTY BAG 1 BAG IV PRN (01:04)
[2024-12-27] MEDS ORDERED: OXYTOCIN 10 UNIT/ML 1 ML VIAL IM PRN (01:04)
[2024-12-27] MEDS ORDERED: METHYLERGONOVINE 0.2 MG/ML 1 ML AMP IM PRN (01:04)
[2024-12-27] MEDS ORDERED: LIDOCAINE 0.5% (PF) 5 MG/ML (50 ML SDV) SQ PRN (01:04)
[2024-12-27] MEDS ORDERED: CARBOPROST TROMETHAMINE 250 MCG/ML 1 ML AMP IM PRN (01:04)
[2024-12-27] MEDS: PENICILLIN G POTASSIUM 2,500,000 UNIT in SODIUM CHLORIDE 0.9% 100 ML IVPB SCH (04:00)
[2024-12-27] MEDS ORDERED: fentaNYL (PF) 50 MCG/ML 5 ML AMP ONE (10:06)
[2024-12-27] MEDS ORDERED: ROPIVACAINE 5 MG/ML 30 ML VIAL ONE (10:06)
[2024-12-27] MEDS ORDERED: SODIUM CHLORIDE 0.9% 250 ML BAG ONE (10:06)
[2024-12-27] MEDS ORDERED: diphenhydrAMINE 50 MG/ML 1 ML VIAL IVP PRN ×2 (12:33)
[2024-12-27] MEDS ORDERED: diphenhydrAMINE 25 MG CAP PO PRN (12:33)
[2024-12-27] MEDS ORDERED: LANOLIN CREAM 1 GM TUBE TOPICAL PRN (12:33)
[2024-12-27] MEDS ORDERED: BENZOCAINE/MENTHOL SPRAY 1 GM/SPRAY AEROSOL TOPICAL PRN (12:33)
[2024-12-27] MEDS ORDERED: ZOLPIDEM 5 MG TAB PO PRN (12:33)
[2024-12-27] MEDS ORDERED: HYDROCORTISONE 2.5% RECTAL CREAM 30 GM TUBE RECTAL PRN (12:33)
--- NOTE | 2024-12-27 12:33 | P.PROBDLV ---
Vaginal Delivery Note - . Vaginal Delivery Note: DATE OF SERVICE: 12/27/2024 PROCEDURE: Normal Vaginal Delivery ATTENDING: Dr. Shirin Silva MD ESTIMATED BLOOD LOSS: 200 mL FINDINGS: VFI, Apgars 8/9. Weight 3 poudns and 8 ounces (1595 grams) PROCEDURE: Ms. Paige is a 29 year old at 31 weeks presenting to labor and delivery for medical induction of labor for pre-eclampsia with severe features and IUGR <1%ile with elevated umbilical artery dopplers. For further details, please review the admitting H&P. Cooks catheter was placed without difficulty and removed after 12 hours. Pitocin was titrated per protocol. AROM was undertaken at 736 revealing clear amniotic fluid. The patient was completely dilated at 1145. She pushed effectively with Category II FHTs. A viable female was delivered at 1211 over an intact perineum. The infant was placed on the maternal abdomen and bulb suctioned. The was noted to be spontaneously crying. Cord was clamped and cut. The was handed off to the pediatric team. Placenta was delivered whole with gentle cord traction at 1213. Oxytocin was started to facilitate uterine tone. Uterine fundus was found to be firm and below the umbilicus upon fundal massage. Thorough examination of the cervix, vagina, periurethral area, and perineum revealed no significant lacerations. The patient is stable and allowed to begin the bonding process.
[2024-12-27] MEDS: SENNOSIDES-DOCUSATE SODIUM 1 EACH TAB PO SCH (19:56)
[2024-12-27] MEDS: ACETAMINOPHEN TAB 500 MG TAB PO SCH (22:18)
[2024-12-27] MEDS: IBUPROFEN 800 MG TAB PO SCH (22:18)
[2024-12-28] MEDS: SIMETHICONE 80 MG CHEWABLE PO PRN (02:48)
[2024-12-28 06:21] LABS: Basophils # (A) 0.03 10*3/uL (0.00-0.10); Basophils % (A) 0.2 %; Eosinophils # (A) 0.01 10*3/uL (0.04-0.35); Eosinophils % (A) 0.1 %; HCT 30.6 % (37.2-46.3); HGB 10.8 g/dL (12.0-15.0); Lymphocytes # (A) 1.56 10*3/uL (0.90-5.00); Lymphocytes % (A) 11.0 %; MCH 33.6 pg (27.0-32.0); MCHC 35.3 g/dL (32.0-37.0); MCV 95.3 fL (80.0-97.0); Monocytes # (A) 0.88 10*3/uL (0.20-1.00); Monocytes % (A) 6.2 %; Neutrophils # (A) 11.65 10*3/uL (1.80-7.70); Neutrophils % (A) 82.1 %; Platelet Count 171 10*3/uL (140-440); RBC 3.21 10*6/uL (4.10-5.20); RDW 13.1 % (11.5-14.5); WBC 14.18 10*3/uL (4.50-10.00)
--- NOTE | 2024-12-28 07:26 | P.PNOBGVD ---
Subjective - Subjective Principal diagnosis: s/p vaginal delivery Interval history: The patient is doing well this morning and had no acute events overnight. She has no complaints this morning. She reports minimal lochia, passing flatus, voiding without difficulty, ambulating, and eating/drinking without nausea or vomiting. She is breast feeding her infant without difficulty. She denies chest pain, shortness of breathing, fevers, or chills overnight. She denies pain or swelling in the legs. Patient reports: Reports appetite normal, Reports voiding normally, Reports pain well controlled, Reports ambulating normally : other (in nursery for prematurity, respiratory distress, blood sugar lability) Objective - Latest Vital Signs Latest vital signs: Vital Signs Temp Pulse Resp BP Pulse Ox 12/28/24 06:30 82 16 117/75 12/28/24 05:30 82 16 129/71 12/28/24 04:00 86 16 129/79 12/28/24 03:00 80 138/95 12/28/24 02:00 75 16 136/85 12/28/24 01:00 79 16 155/96 12/28/24 00:00 79 16 149/91 12/27/24 23:30 98.2 F 79 16 133/82 96 12/27/24 22:30 91 16 133/86 12/27/24 21:30 91 16 135/91 12/27/24 20:00 98.3 F 85 16 143/89 98 12/27/24 16:00 98 F 90 16 135/89 12/27/24 14:36 98.1 F 87 16 138/96 12/27/24 14:21 84 16 157/100 12/27/24 14:06 86 16 150/97 12/27/24 13:51 77 16 154/95 12/27/24 13:36 77 16 159/95 12/27/24 13:21 84 16 165/97 12/27/24 13:06 96 16 151/98 12/27/24 12:51 84 16 163/99 12/27/24 12:36 83 16 183/100 12/27/24 11:25 97.9 F 75 16 166/103 12/27/24 07:54 97.9 F 82 18 141/91 Intake and Output 12/27/24 12/28/24 12/28/24 22:59 06:59 14:59 Intake Total 500 375 Output Total 1900 2550 Balance -1400 -2175 Intake: Intake, IV Titration 500 375 Amount Magnesium Sulfate-Water 500 375 Pmx 20 gm In Water For Injection 1 500ml.bag @ 2 GM/HR 50 mls/hr IV .Q10H DIRK Rx#:[id number] Output: Urine 1900 2550 Other: # Voids 1 - Exam Extremities: Present: normal Abdomen: Present: normal appearance, soft Uterus: Present: normal, firm - Labs Labs: Abnormal Lab Results - Last 24 Hours (Table) 12/28/ Range/Units 05:30 WBC 14.18 H (4.50-10.00) 10*3/uL RBC 3.21 L (4.10-5.20) 10*6/uL Hgb 10.8 L (12.0-15.0) g/dL Hct 30.6 L (37.2-46.3) % MCH 33.6 H (27.0-32.0) pg Immature Gran # 0.05 H (0.00-0.04) 10*3/uL Neutrophils # 11.65 H (1.80-7.70) 10*3/uL Eosinophils # 0.01 L (0.04-0.35) 10*3/uL Assessment and Plan Assessment: 29 year old PPD#1 s/p Plan: 1. . Meeting milestones appropriately. 2. Pre-eclampsia with severe features. s/p Mag. BPs normotensive overnight after Mag Sulfate discontinued. Continue to monitor. 3. 35 week infant. In nursery on 1L of oxygen and for blood sugar instability. Doing well. dispo: anticipate discharge home tomorrow
[2024-12-29 09:12] VITALS: RESP 14
--- NOTE | 2024-12-29 12:13 | P.DS ---
Providers Date of admission: 12/26/24 10:10 Expected date of discharge: 12/29/24 Attending physician: Shirin Silva MD Primary care physician: Stated None Hospital Course: Ms. Paige is a 29 year old now PPD#1 s/p at 35 weeks secondary to pre-eclampsia with severe features and IUGR <1%ile with elevated UA dopplers. The patient is doing well this morning and had no acute events overnight. She has no complaints this morning. She reports minimal lochia, passing flatus, voiding without difficulty, ambulating, and eating/drinking without nausea or vomiting. Infant doing well in the nursery. She denies chest pain, shortness of breathing, fevers, or chills overnight. She denies pain or swelling in the legs. restrictions are reviewed with the patient including pelvic rest for 6 weeks. The patient is encouraged to call the office if she experiences any heavy bleeding, foul-smelling discharge, breast complaints, or any if she has any other concerns. She will follow up in the office in 3 days for blood pressures check. All questions are answered. Patient Condition at Discharge: Good Plan - Discharge Summary New Discharge Prescriptions: New Docusate [Colace] 100 mg PO BID PRN #60 capsule PRN Reason: Constipation Ibuprofen [Motrin] 600 mg PO Q6HR PRN #30 tab PRN Reason: Mild Pain (Scale 1 To 3) Acetaminophen Tab [Tylenol] 650 mg PO Q6H PRN #30 tab PRN Reason: Mild Pain (Scale 1 To 3) No Action Aspirin 81 mg PO DAILY Vit No.179/Iron/Folic [ Tablet] 1 tablet PO DAILY Discharge Medication List Aspirin 81 mg PO DAILY 10/28/24 [History] Vit No.179/Iron/Folic [ Tablet] 1 tablet PO DAILY 10/28/24 [History] Acetaminophen Tab [Tylenol] 650 mg PO Q6H PRN #30 tab 12/29/24 [Rx] Docusate [Colace] 100 mg PO BID PRN #60 capsule 12/29/24 [Rx] Ibuprofen [Motrin] 600 mg PO Q6HR PRN #30 tab 12/29/24 [Rx] Follow up Appointment(s)/Referral(s): Shirin Silva MD [STAFF PHYSICIAN] - 3 Days ( appointment 02/07/25 1:15PM Need BP check appointment in 3 days either in L&D triage or office) Activity/Diet/Wound Care/Special Instructions: Instructions 1. Do not begin any exercise program for 3 weeks. 2. Do not resume sexual relations for 6 weeks or longer if uncomfortable. 3. You may take tub baths or showers at any time. 4. You may use tampons if desired after 6 weeks. 5. Keep any areas repaired with stitches clean and dry. 6. If you are not nursing, wear a good fitting, supportive bra during the day and limit fluid intake for at least 1 week to prevent breast engorgement. 7. Call the office, , within the next week to make appointment for your 6 week checkup if it has not already been made. 8. Report any of the following occurrences to the doctor promptly: a. Heavy, excessive bleeding b. Chills, fever c. Burning or frequency of urination d. Pain or redness and breasts if nursing e. Increasing pain or swelling of vulva (stitches). In addition to the above instructions, the following additional should be followed: 1. No heavy lifting or straining (exercising) until after 6 week checkup. 2. Keep abdominal incision clean and dry: You may wear a dressing if more comfortable. 3. Make office appointment for 2 weeks after delivery date. Pre-eclampsia instructions: 1. Check BP daily 2. Alert office for pressures more than 140/90 3. Go to the ER for pressures more than 160/110, persistent headache despite pain medication, visual disturbances, or right upper quadrant abdominal pain Discharge Disposition: HOME SELF-CARE
[2024-12-29 15:28] VITALS: BP 114/68; PULSE 62; TEMP 98.3
== END 2024-12-29 14:15 | disposition home or self-care (01) | DRG 560 ==
LOC: FBPOP 08:54 → 4FBP 10:10
PROVIDERS: ADMIT Obstetrics & Gynecology; ATTEND Obstetrics & Gynecology
PROC: 4A1HXCZ Monitoring of Products of Conception, Cardiac Rate, External Approach (ICD-10-PCS; principal; 2024-12-27)
PROC: 3E033VJ Introduction of Other Hormone into Peripheral Vein, Percutaneous Approach (ICD-10-PCS; principal; 2024-12-27)
PROC: 10E0XZZ Delivery of Products of Conception, External Approach (ICD-10-PCS; principal; 2024-12-27)
PROC: 10907ZC Drainage of Amniotic Fluid, Therapeutic from Products of Conception, Via Natural or Artificial Opening (ICD-10-PCS; principal; 2024-12-27)
PROC: 0U7C7DJ Dilation of Cervix with Intraluminal Device, Temporary, Via Natural or Artificial Opening (ICD-10-PCS; principal; 2024-12-27)
DX: O14.14 Severe pre-eclampsia complicating childbirth (principal); O36.5930 Maternal care for other known or suspected poor fetal growth, third trimester, not applicable or unspecified; E28.2 Polycystic ovarian syndrome; O99.334 Smoking (tobacco) complicating childbirth; F17.200 Nicotine dependence, unspecified, uncomplicated; Z37.0 Single live birth; Z3A.35 35 weeks gestation of pregnancy; Z79.82 Long term (current) use of aspirin
CPT/HCPCS: 59025; 81001; 82565; 82570; 83615; 84156; 84450; 84460; 84520; 84550; 85025; 85384; 85610; 85730; 96361; 96365; 96375; 99215